=== PATIENT | female | born 1995 | race Caucasian/White ===

== ENCOUNTER 2017-01-17 12:22 | Emergency (ER) | payer OTHER ==
[2017-01-17 12:56] VITALS: BP 113/80
[2017-01-17] MEDS ORDERED: GI Cocktail Oral Solution 30 ML PO ONE (13:02)
[2017-01-17 13:39] LABS: CHLORIDE,CL 105 mmol/L (101-111); SODIUM,NA 141 mmol/L (135-145)
--- NOTE | 2017-01-17 14:14 | EDM.PDOC ---
ED HPI GENERAL MEDICAL PROBLEM - General Chief Complaint: Abdominal Pain Stated Complaint: UPPER ABD PAIN Time Seen by Provider: 01/17/17 13:00 Source of Information: Reports: Patient History Limitations: Reports: No Limitations - History of Present Illness INITIAL COMMENTS - FREE TEXT/NARRATIVE: 21 yo female presents with epigastric abdominal pain x 1 week. States that she has pain after eating. denies n/v/d. no other complaints. Onset Date: 01/10/17 Duration: Constant, Getting Worse Location: Reports: Abdomen Quality: Reports: Ache, Burning Severity: Moderate Improves with: Reports: None Worsens with: Reports: Eating Associated Symptoms: Reports: No Other Symptoms Treatments CAR DETAILER: Reports: Acetaminophen, Other Medication(s) (tums) Epigastric Pain Score (Numeric/FACES): 4 - Related Data Allergies Allergy/AdvReac Type Severity Reaction Status Date / Time No Known Allergies Allergy Verified 01/17/17 12:43 Home Meds: Home Meds Cetirizine [ZyrTEC] 10 mg PO BEDTIME 01/17/17 [History] metFORMIN [Glucophage] 1,000 mg PO WITHLUNCH 01/17/17 [History] metFORMIN [Glucophage] 500 mg PO BEDTIME 01/17/17 [History] Past Medical History - Infectious Disease History Infectious Disease History: Reports: Chicken Pox - Past Surgical History GI Surgical History: Reports: Appendectomy, Cholecystectomy Social & Family History - Tobacco Use Smoking Status *Q: Never Smoker Second Hand Smoke Exposure: No - Caffeine Use Caffeine Use: Reports: None - Recreational Drug Use Recreational Drug Use: No ED ROS GENERAL - Review of Systems Review Of Systems: ROS reveals no pertinent complaints other than HPI. ED EXAM, GI/ABD - Physical Exam Exam: See Below Exam Limited By: No Limitations General Appearance: Alert, WD/WN, No Apparent Distress Eyes: Bilateral: Normal Appearance Nose: Normal Inspection, Normal Mucosa, No Blood Throat/Mouth: Normal Inspection, Normal Lips, Normal Teeth, Normal Gums, Normal Oropharynx, Normal Voice, No Airway Compromise Head: Atraumatic, Normocephalic Neck: Normal Inspection, Supple, Non-Tender, Full Range of Motion Respiratory/Chest: No Respiratory Distress, Lungs Clear, Normal Breath Sounds, No Accessory Muscle Use, Chest Non-Tender Cardiovascular: Normal Peripheral Pulses, Regular Rate, Rhythm, No Edema, No Gallop, No JVD, No Murmur, No Rub GI/Abdominal Exam: Normal Bowel Sounds, Soft, No Organomegaly, No Distention, No Abnormal Bruit, No Mass, Pelvis Stable, Tender (epigastric) Back Exam: Normal Inspection, Full Range of Motion, NT Neurological: Alert, Oriented, CN II-XII Intact, Normal Cognition, Normal Gait, Normal Reflexes, No Motor/Sensory Deficits Skin Exam: Warm, Dry, Intact, Normal Color, No Rash Course - Vital Signs Last Recorded V/S: Last Vital Signs Temp 96.8 F 01/17/17 12:51 Pulse 85 01/17/17 12:51 Resp 20 01/17/17 12:51 BP 113/80 01/17/17 12:51 Pulse Ox 100 01/17/17 12:51 - Orders/Labs/Meds Orders: Active Orders 24 hr Category Date Time Status Omeprazole Med 01/17/17 14:52 Once 20 mg PO ONETIME ONE Labs: Laboratory Tests 01/17/17 01/17/17 01/17/17 Range/Units 13:12 13:12 13:20 WBC 11.8 H (5.0-10.0) 10^3/uL RBC 4.76 (4.2-5.4) 10^6/uL Hgb 12.2 (12.0-16.0) g/dL Hct 38.4 (37.0-47.0) % MCV 80.7 (80-100) fL MCH 25.6 L (27.0-34.0) pg MCHC 31.8 L (33.0-35.0) g/dL Plt Count 403 (150-450) 10^3/uL Neut % (Auto) 63.8 (42.2-75.2) % Lymph % (Auto) 14.1 L (20.5-50.1) % [place] % (Auto) 5.9 (2-8) % Eos % (Auto) 15.9 H (1.0-3.0) % Baso % (Auto) 0.3 (0.0-1.0) % Sodium 141 (135-145) mmol/L Potassium 3.9 (3.6-5.0) mmol/L Chloride 105 (101-111) mmol/L Carbon Dioxide 27.0 (21.0-31.0) mmol/L Anion Gap 12.9 BUN 8 (7-18) mg/dL Creatinine 0.7 (0.6-1.3) mg/dL Est Cr Clr Drug Dosing 112.47 mL/min Estimated GFR (MDRD) > 60 Glucose 105 (74-105) mg/dL Calcium 9.3 (8.4-10.2) mg/dl Urine HCG, Qual Negative Meds: Medications Discontinued Medications Generic Name Dose Route Start Last Admin Trade Name Freq PRN Reason Stop Dose Admin Al Hydroxide/Mg Hydroxide 30 ml 01/17/17 13:02 01/17/17 13:10 Gi Cocktail PO 01/17/17 13:03 30 ml ONETIME ONE Administration Bismuth Subsalicylate 262 mg 01/17/17 14:16 01/17/17 14:38 Pepto Bismol PO 01/17/17 14:17 262 mg ONETIME ONE Administration - Re-Assessments/Exams Free Text/Narrative Re-Assessment/Exam: 01/17/17 14:15 no relief with GI cocktail. Pt takes zantac OTC. Departure - Departure Time of Disposition: 14:52 Disposition: Home, Self-Care 01 Condition: Good Clinical Impression: Peptic ulcer - Discharge Information Instructions: Peptic Ulcer, Abdominal Pain, Adult, [id number], Food Choices for Peptic Ulcer Disease Forms: ED Department Discharge Additional Instructions: YOu need to take the prilosec daily. Take over the counter pepto bismal as needed for pain. Follow up with your PCP for referral to a child daycare worker ( stomach doctor) to evaluate the possible ulcer. If you do not have a PCP, follow up in clinic the beginning of next week. Try to avoid foods that may cause irritation to stomach. Care Plan Goals: Prilosec #30 - My Orders Last 24 Hours: My Active Orders 01/17/17 14:52 Omeprazole 20 mg PO ONETIME ONE - Assessment/Plan Last 24 Hours: My Active Orders 01/17/17 14:52 Omeprazole 20 mg PO ONETIME ONE
[2017-01-17] MEDS ORDERED: Bismuth Subsalicylate 262 MG Tab.Chew PO ONE (14:16)
[2017-01-17] MEDS ORDERED: Omeprazole 20 MG Cap.CR PO ONE (14:52)
== END 2017-01-17 14:58 | disposition home or self-care (01) ==
LOC: DL.ED 12:22
DX: K27.9 Peptic ulcer, site unspecified, unspecified as acute or chronic, without hemorrhage or perforation (principal); Z90.49 Acquired absence of other specified parts of digestive tract
CPT/HCPCS: 36415; 74020; 80048; 81025; 85025; 99284; A9270

== ENCOUNTER 2019-04-26 22:53 | Emergency (ER) | payer OTHER ==
[2019-04-26] MEDS ORDERED: Ondansetron 4 MG/2 ML SDV IV ONE (23:49)
[2019-04-26] MEDS ORDERED: Sodium Chloride 0.9% 1,000 ML IV ONE (23:49)
--- NOTE | 2019-04-26 23:53 | EDM.PDOC ---
ED HPI GENERAL MEDICAL PROBLEM - General Chief Complaint: Skin Complaint Stated Complaint: MESTISIS Time Seen by Provider: 04/26/19 23:00 Source of Information: Reports: Patient History Limitations: Reports: No Limitations - History of Present Illness INITIAL COMMENTS - FREE TEXT/NARRATIVE: ED with c/o pain increased redness and swelling to left breast. Dx with mastitis yesterday and started on Doxycycline. Nausea and vomiting today with body aches and chills. New bilateral nipple piercings 2 weeks ago. Hx cellulitis to lower leg during high school. Does not want to remove piercings. Clinic yesterday started on doxycycline, Initially just left breast , tonight right breast swollen and tender, No redness noted. Left Upper Chest Pain Score (Numeric/FACES): 6 - Related Data Allergies Allergy/AdvReac Type Severity Reaction Status Date / Time clindamycin Allergy Hives Verified 04/26/19 23:01 Home Meds: Home Meds ALPRAZolam [Alprazolam] 1 mg PO ASDIRECTED PRN 04/26/19 [History] DULoxetine [Cymbalta] 20 mg PO DAILY 04/26/19 [History] Doxycycline [Doxycycline Hyclate] 100 mg PO BID 04/26/19 [History] buPROPion HCl [Wellbutrin Xl] 300 mg PO DAILY 04/26/19 [History] Past Medical History Psychiatric History: Reports: Anxiety - Infectious Disease History Infectious Disease History: Reports: Chicken Pox - Past Surgical History HEENT Surgical History: Reports: Other (See Below) Other HEENT Surgeries/Procedures: [place] teeth removed GI Surgical History: Reports: Appendectomy, Cholecystectomy Social & Family History - Tobacco Use Smoking Status *Q: Never Smoker Second Hand Smoke Exposure: No - Caffeine Use Caffeine Use: Reports: None - Recreational Drug Use Recreational Drug Use: No ED ROS GENERAL - Review of Systems Review Of Systems: Comprehensive ROS is negative, except as noted in HPI. ED EXAM, SKIN/RASH Exam: See Below Exam Limited By: No Limitations General Appearance: Alert, Mild Distress Eye Exam: Bilateral Eye: EOMI Ears: Normal External Exam Nose: Normal Inspection Throat/Mouth: Normal Inspection Head: Atraumatic, Normocephalic Neck: Normal Inspection Respiratory/Chest: No Respiratory Distress, Lungs Clear Cardiovascular: Normal Peripheral Pulses, Regular Rate, Rhythm, Tachycardia GI/Abdominal: Normal Bowel Sounds Extremities: Normal Inspection, Normal Range of Motion Neurological: Alert, Oriented, Normal Cognition Psychiatric: Normal Affect Skin: Warm, Dry Location, Skin: Other (bilateral nipple piercing. Left breast swollen red nipple to top of breast, right breast no redness, appears some swelling, tender. No drainage from nipple or around piercings) Course - Vital Signs Last Recorded V/S: Last Vital Signs Temp 98.2 F 04/27/19 02:44 Pulse 101 H 04/27/19 02:44 Resp 16 04/27/19 02:44 BP 113/63 04/27/19 02:44 Pulse Ox 96 04/27/19 02:44 - Orders/Labs/Meds Orders: Active Orders 24 hr Category Date Time Status CULTURE BLOOD [BC] Stat Lab 04/26/19 23:59 Results Blood Culture x2 Reflex Set [OM.PC] Stat Oth 04/26/19 23:37 Ordered Labs: Laboratory Tests 04/26/19 04/26/19 04/26/19 Range/Units 00:04 00:04 00:04 WBC 11.5 H (5.0-10.0) 10^3/uL RBC 4.19 L (4.2-5.4) 10^6/uL Hgb 10.8 L (12.0-16.0) g/dL Hct 34.1 L (37.0-47.0) % MCV 81.4 (80-100) fL MCH 25.8 L (27.0-34.0) pg MCHC 31.7 L (33.0-35.0) g/dL Plt Count 296 D (150-450) 10^3/uL Neut % (Auto) 72.3 (42.2-75.2) % Lymph % (Auto) 14.4 L (20.5-50.1) % [place] % (Auto) 9.8 H (2-8) % Eos % (Auto) 3.2 H (1.0-3.0) % Baso % (Auto) 0.3 (0.0-1.0) % Sodium 138 (135-145) mmol/L Potassium 3.1 L (3.6-5.0) mmol/L Chloride 106 (101-111) mmol/L Carbon Dioxide 24.0 (21.0-31.0) mmol/L Anion Gap 11.1 BUN 7 (7-18) mg/dL Creatinine 0.7 (0.6-1.3) mg/dL Est Cr Clr Drug Dosing 110.55 mL/min Estimated GFR (MDRD) > 60 BUN/Creatinine Ratio 10.00 Glucose 100 (74-105) mg/dL Lactic Acid (0.5-2.2) mmol/L Calcium 8.3 L (8.4-10.2) mg/dl Total Bilirubin 0.3 (0.2-1.0) mg/dL AST 58 H (10-42) IU/L ALT 60 (10-60) IU/L Alkaline Phosphatase 75 (42-121) IU/L Total Protein 6.8 (6.7-8.2) g/dl Albumin 3.4 (3.2-5.5) g/dl Globulin 3.4 Albumin/Globulin Ratio 1.00 HCG, Qual Negative 04/26/19 Range/Units 23:59 WBC (5.0-10.0) 10^3/uL RBC (4.2-5.4) 10^6/uL Hgb (12.0-16.0) g/dL Hct (37.0-47.0) % MCV (80-100) fL MCH (27.0-34.0) pg MCHC (33.0-35.0) g/dL Plt Count (150-450) 10^3/uL Neut % (Auto) (42.2-75.2) % Lymph % (Auto) (20.5-50.1) % [place] % (Auto) (2-8) % Eos % (Auto) (1.0-3.0) % Baso % (Auto) (0.0-1.0) % Sodium (135-145) mmol/L Potassium (3.6-5.0) mmol/L Chloride (101-111) mmol/L Carbon Dioxide (21.0-31.0) mmol/L Anion Gap BUN (7-18) mg/dL Creatinine (0.6-1.3) mg/dL Est Cr Clr Drug Dosing mL/min Estimated GFR (MDRD) BUN/Creatinine Ratio Glucose (74-105) mg/dL Lactic Acid 1.5 (0.5-2.2) mmol/L Calcium (8.4-10.2) mg/dl Total Bilirubin (0.2-1.0) mg/dL AST (10-42) IU/L ALT (10-60) IU/L Alkaline Phosphatase (42-121) IU/L Total Protein (6.7-8.2) g/dl Albumin (3.2-5.5) g/dl Globulin Albumin/Globulin Ratio HCG, Qual Meds: Medications Discontinued Medications Generic Name Dose Route Start Last Admin Trade Name Freq PRN Reason Stop Dose Admin Diphenhydramine HCl 25 mg 04/27/19 00:31 04/27/19 01:04 Benadryl IVPUSH 04/27/19 00:32 25 mg ONETIME ONE Administration Sodium Chloride 1,000 mls @ 999 mls/hr 04/26/19 23:49 04/27/19 00:10 Normal Saline IV 04/27/19 00:49 999 mls/hr .BOLUS ONE Administration Vancomycin HCl 1,537.68 mg/ 100 mls @ 100 mls/hr 04/27/19 00:30 04/27/19 01: 07 Sodium Chloride IV 04/27/19 01:29 Not Given Q8H ONE Vancomycin HCl 1,500 mg/ 250 mls @ 166.667 mls/hr 04/27/19 00:40 04/27/19 01: 09 Sodium Chloride IV 04/27/19 02:09 166.667 mls/hr Q12H ONE Administration Ondansetron HCl 4 mg 04/26/19 23:49 04/27/19 00:11 Zofran IV 04/26/19 23:50 4 mg ONETIME ONE Administration - Re-Assessments/Exams Free Text/Narrative Re-Assessment/Exam: 04/27/19 02:15 Hospitalization recommended to continue IV antibiotic therapy. Patient refuses. Does agree to follow up in clinic for recheck in am. Departure - Departure Time of Disposition: 02:50 Disposition: Home, Self-Care 01 Condition: Fair Clinical Impression: Mastitis in female Cellulitis Qualifiers: Site of cellulitis: other site Qualified Code(s): L03.818 - Cellulitis of other sites - Discharge Information *PRESCRIPTION DRUG MONITORING PROGRAM REVIEWED*: No *COPY OF PRESCRIPTION DRUG MONITORING REPORT IN PATIENT GILBERTO: No Instructions: Cellulitis, Adult, Mastitis, [id number] Forms: ED Department Discharge Additional Instructions: Warm pack to area alternate tylenol and ibuprofen every 4 hours as needed for fever/ discomfort clinic follow up Thursday Bactrim DS one twice daily for one week Stop doxycycline - My Orders Last 24 Hours: My Active Orders 04/26/19 23:37 Blood Culture x2 Reflex Set [OM.PC] Stat 04/26/19 23:59 CULTURE BLOOD [BC] Stat - Assessment/Plan Last 24 Hours: My Active Orders 04/26/19 23:37 Blood Culture x2 Reflex Set [OM.PC] Stat 04/26/19 23:59 CULTURE BLOOD [BC] Stat
[2019-04-27] MEDS ORDERED: SODIUM CHLORIDE 0.9% IV ONE (00:30)
[2019-04-27] MEDS ORDERED: VANCOMYCIN IV ONE (00:30)
[2019-04-27] MEDS ORDERED: diphenhydrAMINE 50 MG/ML SDV IVPUSH ONE (00:31)
[2019-04-27 00:40] LABS: ANION GAP 11.1; CHLORIDE,CL 106 mmol/L (101-111); SODIUM,NA 138 mmol/L (135-145)
[2019-04-27 02:45] VITALS: BP 113/63; PULSE 101
== END 2019-04-27 03:06 | disposition home or self-care (01) ==
LOC: DL.ED 22:53
DX: N61.0 Mastitis without abscess (principal); F41.9 Anxiety disorder, unspecified; Z88.1 Allergy status to other antibiotic agents; Z79.899 Other long term (current) drug therapy
CPT/HCPCS: 36415; 80053; 83605; 84703; 85025; 87040; 96361; 96365; 96375; 99284; J1200; J2405; J3370; J7030; J7050

== ENCOUNTER 2021-09-30 19:18 | Emergency (ER) | payer OTHER ==
[2021-09-30] MEDS ORDERED: Lidocaine 1% 30 ML SDV INJECT ONE (19:53)
[2021-09-30 19:57] VITALS: BP 147/98; PULSE 88
[2021-09-30] MEDS ORDERED: Lidocaine 1% 30 ML SDV ONE (20:02)
[2021-09-30] MEDS ORDERED: Bacitracin Oint 1 GM U/D Packet TOP ONE (20:42)
[2021-09-30] MEDS ORDERED: Diphtheria,Pertussis(Acell),Tetanus Vaccine 0.5 ML Syringe IM ONE (20:54)
== END 2021-09-30 21:06 | disposition home or self-care (01) ==
LOC: DL.ED 19:18
DX: S61.012A Laceration without foreign body of left thumb without damage to nail, initial encounter (principal); Z79.899 Other long term (current) drug therapy; Z88.1 Allergy status to other antibiotic agents; Z23 Encounter for immunization; W26.0XXA Contact with knife, initial encounter
CPT/HCPCS: 12001; 90471; 90715; 99281; 99282-25

== ENCOUNTER 2024-06-29 20:10 | Emergency (ER) | payer BC, OTHER ==
[2024-06-29 20:32] VITALS: BP 140/94; PULSE 108
[2024-06-29] MEDS: Lidocaine 1% with EPINEPHrine 1:100,000 20 ML MDV INJECT ONE (20:35)
== END 2024-06-29 22:02 | disposition home or self-care (01) ==
LOC: DL.ED 20:10
DX: S70.352A Superficial foreign body, left thigh, initial encounter (principal); Z90.49 Acquired absence of other specified parts of digestive tract; Z88.1 Allergy status to other antibiotic agents; Z79.84 Long term (current) use of oral hypoglycemic drugs; Z79.899 Other long term (current) drug therapy; W45.8XXA Other foreign body or object entering through skin, initial encounter
CPT/HCPCS: 10120; 99283; J3490